=== PATIENT | male | born 1960 | race Hispanic/Latino ===

== ENCOUNTER 2016-04-26 17:18 | Emergency (ER) | payer OTHER ==
[~2016-04-26] VITALS: Ht 170.2 cm; Wt 77.3 kg
[2016-04-26 17:23] VITALS: BP 143/90; PULSE 63; RESP 18; O2SAT 96
[2016-04-26] MEDS ORDERED: Fluorescein 0.6 mg Ophthalmic Strip ONE (19:01)
[2016-04-26] MEDS ORDERED: 0.9% Sodium Chloride Inhalation Solution ONE (19:01)
[2016-04-26] MEDS ORDERED: Tetracaine 0.5% 4 mL Ophthalmic Solution ONE (19:01)
--- NOTE | 2016-04-26 19:42 | ED.REPORT ---
HPI-Eye Problem Date of Service Apr 26, 2016 ED Provider: Endy Lees PA-C Paul is an otherwise healthy 55-year-old male presented with the chief complaint of left eye pain. He states that it started approximately 5 days ago while he was at work. 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 He has had a foreign body sensation since that time. "Like something is scratching it. " He does not wear contact lenses. Nursing Notes Stated Complaint: GOT SOMETHING IN LEFT EYE- HAPPENED AT WORK Chief Complaint: Eye Nursing Notes Reviewed: Yes Allergies: Coded Allergies: No Known Allergies (Unverified , 09/30/11) Scheduled Ciprofloxacin Ophth Soln (Ciloxan Ophth Soln) 5 Ml Drops 2 DROP LEFT_EYE QID Scheduled PRN Oxycodone (Roxicodone) 5 Mg Tablet 5 MG PO Q4H PRN PRN For Pain General Time Seen by MD: 19:15 Chief Complaint Left eye affected Past Medical History Past Medical History Notes: Denies Review of Systems Negative unless stated otherwise in history of present illness Physical Exam General: Well appearing, well developed, well nourished, no acute distress. Head: Atraumatic, normocephalic. Eyes: EOMI. PERRL. Mild bilateral injection with small pinguecula on both medial and lateral aspects bilaterally. Slightly increased injection in the lateral aspect of the left eye. Left eye: No increase in uptake of fluorescein stain noted with carrizales lamp examination. Slit lamp examination reveals no obvious trauma. No trauma noted with lid eversion. Visual acuity OU = 20/80 OD = 20/60 OS = 20/50. ENT: Voice clear, hearing grossly intact. Respiratory: No respiratory distress, no increased work of breathing. Speaks in complete sentences. Skin: Warm and dry. Neurological: Grossly nonfocal. Psychological: alert and oriented. Speech appropriate, linear and logical. Behavior appropriate. Initial Vital Signs Vital Signs (First) Date Time Temp Pulse Resp B/P Pulse Ox O2 Delivery O2 Flow Rate FiO2 04/26/16 17:23 36.1 63 18 143/90 96 Room Air Initial VS: Reviewed, Vital signs normal Re-Eval/Medical Decision Med Decision/Clinical Course I discussed this patient with Dr. Tang who met with and examined the patient, and performed tonometry examination. 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 He reports that he felt something go in his eye approximately 4 days ago while removing plastic in a basement. Denies hammering or grinding metal. He does not wear contacts. He denies reduced visual acuity. Physical examination including slit lamp and Wood's lamp reveal little other than pinguecula on the medial and lateral aspects of both eyes and slightly increased injection on the lateral aspect of the left eye, with patient complains of his pain. Tonometry reveals ocular pressure of [address] Tang and I both agree that he likely has a small piece of fiberglass insulation in his eye which is causing irritation and abrasion. It does not appear to be infected at this time. We irrigated the eye with 1 L of normal saline. Provided a prescription for ciprofloxacin drops, advised over the counter pain medication as well as oxycodone to supplement. Gave a referral to [facility] for follow-up in the next few days. Provided return precautions. I discussed this with the patient and his family. They understand and a couple with the plan. Discharge & Departure Primary Impression: Corneal abrasion Encounter type: initial encounter Laterality: left Qualified Code: S05.02XA - Injury of conjunctiva and corneal abrasion without foreign body, left eye, initial encounter Disposition: Home Discharge Condition All VS Reviewed: Yes Condition: Stable Patient Instructions: Corneal Abrasion (ED) Additional Instructions: Evaluation for left eye pain in the emergency department. While physical exam does not reveal any obvious injuries here left eye, based on your history of working with insulation it seems likely that a small piece of fiberglass insulation got in your eye which is causing significant irritation. I will prescribe antibiotic drops to be applied to your eye 4 times a day for 5 days to prevent infection. The pain is best treated with 400 mg of ibuprofen (Advil, Motrin) every 6 hours , or 1000 mg of acetaminophen (Tylenol) every 6 hours. These drugs can be taken at the same time for more severe pain. I will also give a prescription for small amount of oxycodone to be taken additionally for pain not controlled with the other drugs. I will give you a referral to the [facility] eye clinic, please contact them tomorrow to arrange follow-up in the next few days. Return to emergency department for any new or worsening symptoms including decrease in vision, increasing pain, redness, discharge. Referrals: [facility] EDSupervising Provider for APC: Nate Tang DO copies to: [facility] Endy Lees PA-C Apr 26, 2016 19:42
[2016-04-26] MEDS ORDERED: Fluorescein 0.6 mg Ophthalmic Strip LEFT_EYE ONE (19:45)
[2016-04-26] MEDS ORDERED: OXYC-474 PO (20:43)
[2016-04-26] MEDS ORDERED: CIPR5DRO LEFT_EYE (20:43)
== END 2016-04-26 21:12 | disposition home or self-care (01) ==
LOC: SED 17:18
DX: S05.02XA Injury of conjunctiva and corneal abrasion without foreign body, left eye, initial encounter (principal); X58.XXXA Exposure to other specified factors, initial encounter; Y93.89 Activity, other specified; Y92.89 Other specified places as the place of occurrence of the external cause; Y99.0 Civilian activity done for income or pay

== ENCOUNTER 2016-07-21 15:13 | Emergency (ER) | payer OTHER ==
[~2016-07-21 15:13] MED LIST: CIPR5DRO LEFT_EYE; OXYC-474 PO
[2016-07-21 15:17] VITALS: BP 129/84; PULSE 73; RESP 16; O2SAT 99
--- NOTE | 2016-07-21 17:12 | ED.REPORT ---
HPI-Extremity Problem Lower Date of Service July 21, 2016 ED Provider: Endy Lees PA-C Paul is an otherwise healthy 55-year-old male presenting with a chief complaint of right toenail injury and patient reports he was moving furniture, wearing flip flops when he accidentally kicked the couch, partially tearing his right great toenail off. Denies numbness/tingling in the digit, morbidities such as diabetes, HIV or use of immunosuppressive drugs. He states he is up-to-date on his tetanus shot. Nursing Notes Stated Complaint: RIGHT BIG TOE/TOENAIL INJURY Chief Complaint: General Complaint Nursing Notes Reviewed: Yes Allergies: Coded Allergies: No Known Allergies (Unverified , 09/30/11) Scheduled Ciprofloxacin Ophth Soln (Ciloxan Ophth Soln) 5 Ml Drops 2 DROP LEFT_EYE QID Scheduled PRN Oxycodone (Roxicodone) 5 Mg Tablet 5 MG PO Q4H PRN PRN For Pain oxyCODONE (oxyCODONE) 5 Mg Tablet 5-10 MG PO QID PRN PRN For Pain General Time Seen by MD: 16:26 Chief Complaint Toe injury right 1 Past Medical History Past Medical History Notes: Denies Review of Systems Review of Systems Note: Negative unless stated otherwise in history of present illness Physical Exam General: Well appearing, well developed, well nourished, no acute distress. Right foot, first digit: Thickened toenail, partially avulsed. Minimal bleeding. Brisk capillary refill and sensation intact. Foot and toe otherwise nontender. Head: Atraumatic, normocephalic. Eyes: No scleral icterus or injection. No discharge. Vision grossly intact. ENT: Voice clear, hearing grossly intact. Respiratory: No respiratory distress, no increased work of breathing. Speaks in complete sentences. Skin: Warm and dry. Neurological: Grossly nonfocal. Psychological: alert and oriented. Speech appropriate, linear and logical. Behavior appropriate. Initial Vital Signs Vital Signs (First) Date Time Temp Pulse Resp B/P Pulse Ox O2 Delivery O2 Flow Rate FiO2 07/21/16 15:17 36.5 73 16 129/84 99 Room Air Initial VS: Vital signs normal Procedures Ingrown Toenail Removal Ingrown Toenail Removal: Partially avulsed toenail removed. Procedure Performed by: Allied health pract Consent / Setup / Site Prep: Informed consent provided, Consent from patient , Hand hygiene observed Skin Preparation Agent: Hibiclens - Chlorhexidine Digit Involved: Great toe right Digital Block Procedure: Four digital nerve block, Lidocaine 1%, 5cc, 27g needle, Dorsal approach, Anesthesia obtained Removal Procedure: Entire nail seg removed Post-Procedure / Complications: Antibiotic oint applied, Dressing placed, No complications, Condition improved, Tolerated procedure well, Patient stable Re-Eval/Medical Decision Med Decision/Clinical Course Otherwise healthy 55-year-old male presents with chief complaint of a partially avulsed right great toenail. Up-to-date on tetanus. Minimal bleeding, brisk capillary refill and sensation intact. Toe otherwise nontender with full range of motion. I have little concern for fracture. Performed digital block, removed toenail. Patient tolerated the procedure well and is improved afterwards. Stable and safe for discharge to home. Advise regarding primary care follow-up, [id number] analgesics, emergency return precautions. Patient verbalized understanding of and consented to plan Discharge & Departure Impression: Primary Impression: Toenail avulsion Encounter type: initial encounter Qualified Code: S91.209A - Unspecified open wound of unspecified toe(s) with damage to nail, initial encounter Disposition: Home Discharge Condition All VS Reviewed: Yes Condition: Stable Patient Instructions: Toenail/Fingernail Removal (GEN) Additional Instructions: Evaluation for a right toenail injury in the emergency department and also history and physical. It appears to have partially removed your own right big toenail. We have finished the job here in the emergency department. Leave this dressing on and dry 24 hours. After that you can remove the dressing , wash with soap and water, reapply antibiotic ointment and dressing. Do this at least daily until it is healed. The nail should grow back slowly over time. It may be somewhat abnormal at first. The pain is best treated with 600 mg of ibuprofen (Advil, Motrin) every 6 hours , or 1000 mg of acetaminophen (Tylenol) every 6 hours. These drugs can be taken at the same time for more severe pain. I will also write a prescription for small amount of oxycodone. you can take 1-2 of these tablets every 6 hours for pain not controlled by the other 2 medications[address] do not drive or drink alcohol within 4 hours of taking this medication. Follow-up with your primary care provider if you have any concerns regarding the recovery. It would also be appropriate to discuss treating your toenail fungus with your primary care provider. Return to emergency department for new or worsening symptoms including increasing redness, pain, swelling or the appearance of pus. Referrals: [facility] EDSupervising Provider for APC: Francisco Barksdale MD, Seth PA-C July 21, 2016 17:12
[2016-07-21] MEDS ORDERED: OXYC5TAB72 PO (17:24)
[2016-07-21 17:29] VITALS: BP 130/85; PULSE 65; RESP 20; O2SAT 99
== END 2016-07-21 17:30 | disposition home or self-care (01) ==
LOC: SED 15:13
DX: S91.201A Unspecified open wound of right great toe with damage to nail, initial encounter (principal); W22.03XA Walked into furniture, initial encounter; Y93.89 Activity, other specified; Y92.009 Unspecified place in unspecified non-institutional (private) residence as the place of occurrence of the external cause; Y99.8 Other external cause status